=== PATIENT | male | born 1995 | race Caucasian/White ===

== ENCOUNTER → 2017-12-21 | Outpatient (CLI) | payer BC | LOC: BMCIMAGING 16:02 | PROVIDERS: ATTEND Orthopaedic Surgery Hand Surgery | DX: M79.641 Pain in right hand (principal) ==

== ENCOUNTER 2018-02-19 05:04 | Emergency (ER) | payer BC ==
[2018-02-19 05:13] VITALS: BP 152/62
--- NOTE | 2018-02-19 06:03 | EDPHY ---
H & P Stated Complaint: c/o R upper jaw pain - known problem with tooth x 2 days Time Seen by Provider: 02/19/18 06:03 HPI/ROS: HPI CHIEF COMPLAINT: Right posterior molar dental pain. HISTORY OF PRESENT ILLNESS: 22-year-old male presents emergency room with right posterior molar dental pain. This been bothering him for 24 hr. No fever. No trouble swallowing. He has had problems with this tooth in the past with infection. Has a decaying tooth. Past Medical History: No significant medical history Past Surgical History: Denies recent surgery Social History: Denies drugs alcohol tobacco. Family History: Noncontributory ROS REVIEW OF SYSTEMS: 10 Systems were reviewed and negative with the exception of the elements mentioned in the history of present illness. Exam Constitutional triage nursing summary reviewed, vital signs reviewed, awake/ alert. Eyes normal conjunctivae and sclera, EOMI, PERRLA. HENT oropharynx: Right posterior upper molar has decay present. No gumline abscess, no Skyler's, No ANUG. moist mucus membranes, no epistaxis, neck supple/ no meningismus, no raccoon eyes. Respiratory clear to auscultation bilaterally, normal breath sounds, no respiratory distress, no wheezing. Cardiovascular rate normal, regular rhythm, no murmur, no edema, distal pulses normal. Gastrointestinal soft, non-tender, no rebound, no guarding, normal bowel sounds, no distension, no pulsatile mass. Genitourinary no CVA tenderness. Musculoskeletal no midline vertebral tenderness, full range of motion, no calf swelling, no tenderness of extremities, no meningismus, good pulses, neurovascularly intact. Skin pink, warm, & dry, no rash, skin atraumatic. Neurologic awake, alert and oriented x 3, AAOx3, moves all 4 extremities equally, motor intact, sensory intact, CN II-XII intact, normal cerebellar, normal vision, normal speech. Psychiatric normal mood/affect. Heme/Lymph/Immune no lymphadenopathy. Differential Diagnosis: Includes but is not limited to in a particular order apical abscess, pulpitis, dental infection, abscess Medical Decision Making: Plan for this patient placed on Pen-VK. Recommend Tylenol Motrin for pain control. Recommend follow-up with dentistry. Return precautions discussed with the patient. - Source: Patient - Medical/Surgical History Hx Asthma: Yes Hx Chronic Respiratory Disease: No Hx Diabetes: No Hx Cardiac Disease: No Hx Renal Disease: No Hx Cirrhosis: No Hx Alcoholism: No Hx HIV/AIDS: No Hx Splenectomy or Spleen Trauma: No Other PMH: add, asthma, gerd, tendon repair R hand - Social History Smoking Status: Former smoker Constitutional: Initial Vital Signs Temperature (C) 36.7 C 02/19/18 05:10 Heart Rate 62 02/19/18 05:10 Respiratory Rate 16 02/19/18 05:10 Blood Pressure 152/62 H 02/19/18 05:10 O2 Sat (%) 96 02/19/18 05:10 O2 Delivery Mode Room Air Allergies/Adverse Reactions: cefaclor [From Ceclor] Allergy (Verified 02/19/18 05:14) Home Medications: Medication Instructions Recorded Adderall 10 MG (*) 02/19/18 Albuterol 5 mg/ml INH 02/19/18 Penicillin V Potassium [Penicillin 500 mg PO BID #14 tab 02/19/18 VK] Zantac 02/19/18 Departure - Departure Disposition: Home, Routine, Self-Care Clinical Impression: Pain, dental Instructions: Toothache (ED) Referrals: Fern Bowman MD [Primary Care Provider] - As per Instructions [facility] [Outside] - As per Instructions [facility] [Outside] - As per Instructions Dental [facility] [Outside] - As per Instructions Dental [facility] [Outside] - As per Instructions [facility] [Outside] - As per Instructions Prescriptions: Penicillin V Potassium [Penicillin VK] 500 mg PO BID #14 tab
[2018-02-19] MEDS ORDERED: PENICILLIN VK 250MG PREPACK#6 BTL TAKEHOME ONE (06:07)
[2018-02-19] MEDS ORDERED: IBUPROFEN 800 MG TAB PO ONE (06:16)
== END 2018-02-19 06:24 | disposition home or self-care (01) ==
DX: K08.89 Other specified disorders of teeth and supporting structures (principal); K21.9 Gastro-esophageal reflux disease without esophagitis; J45.909 Unspecified asthma, uncomplicated; Z87.891 Personal history of nicotine dependence

== ENCOUNTER → 2018-02-20 | Outpatient (CLI) | payer BC | END | disposition home or self-care (01) | LOC: BMCIMAGING 14:37 | PROVIDERS: ATTEND Orthopaedic Surgery Hand Surgery | DX: M25.512 Pain in left shoulder (principal); M25.531 Pain in right wrist; M25.532 Pain in left wrist; V00.311A Fall from snowboard, initial encounter ==